=== PATIENT | male | born 1965 | race African-American/Black ===

== ENCOUNTER → 2016-07-21 | Outpatient (CLI) | payer OTHER ==
--- NOTE | ~2016-07-21 | US5 ---
[facility] A Service of [facility] RADIOLOGY TEXT RESULTS PATIENT: NAIN CRONIN LOCATION: [place] : 67 UNIT #: [id number] AGE: [address]: KATT MANZANO SEX: M ORDER DR: [id number] [facility] [address] [place], [place] [address] [id number] O MR#: [id number] Acc #: [id number] NAME: NAIN CRONIN : 1965 SEX: M STUDY DATE/TIME: 07/21/2016 10:48 UNIT: [facility]US ROOM: STUDY DESCRIPTION: US Abdominal Complete Attending Physician: Ana Gentile Referring Physician: Ana Gentile Ordering Physician: Ana Gentile Primary Care Physician: Kerline Collazo M.D. MEDICAL IMAGING REPORT This report is preliminary unless electronic signature is present EXAM Ultrasound of the abdomen complete 07/21/2016 INDICATION Abdominal pain worse in the last year. Hypertension. Abdominal pain for several years but pain has been worsening over the past 12 months. TECHNIQUE Sonographic imaging of the abdomen was performed. COMPARISON Correlation is made with CTA 2010. FINDINGS Segmentally visualized aorta and IVC are unremarkable. Visualized pancreas unremarkable. The liver measures 14.8 cm long axis. No focal liver mass, ascites, or intrahepatic ductal dilatation. The gallbladder IS sonographically unremarkable. Extrahepatic common bile duct measures 4-5 mm. Liver measures 14.2 cm. Kidneys are nonobstructed. The left measures 10.4 cm long axis and the right 9.6 cm. Nonobstructing stone in the mid pole left kidney measures about 4 mm. There is a benign-appearing cyst in the mid pole right kidney measuring 12 mm. The spleen measures 8.1 cm long axis. IMPRESSION 1. No evidence of cholelithiasis or ductal dilatation. 2. Tiny nonobstructing left renal stone. 3. Benign-appearing cyst right kidney. 4. Examination, otherwise, appears negative. Dictated by... Delio Bass M.D. [facility] A Service of [facility] RADIOLOGY TEXT RESULTS PATIENT: NAIN CRONIN LOCATION: [facility] : 67 UNIT #: [id number] AGE: [address]: KATT MANZANO SEX: M ORDER DR: THIS IS AN ELECTRONICALLY VERIFIED REPORT Delio Bass M.D. at 07/21/2016 7:08 PM Dayana TD: 07/21/2016 15:48 JOB #: [id number] MEDICAL IMAGING REPORT Page 1 of 1 COPY
== END | disposition home or self-care (01) ==
LOC: CGUS 10:04
DX: R10.9 Unspecified abdominal pain (principal); N20.0 Calculus of kidney; N28.1 Cyst of kidney, acquired; I10 Essential (primary) hypertension
CPT/HCPCS: 76700

== ENCOUNTER 2016-10-25 12:59 | Emergency (ER) | payer OTHER ==
[~2016-10-25] VITALS: Ht 172.7 cm; Wt 91.2 kg
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
== END 2016-10-25 15:22 | disposition home or self-care (01) ==
LOC: CFTX 12:59 → CED 12:59 → CFTX 14:51
DX: S13.4XXA Sprain of ligaments of cervical spine, initial encounter (principal); S33.5XXA Sprain of ligaments of lumbar spine, initial encounter; I10 Essential (primary) hypertension; V49.40XA Driver injured in collision with unspecified motor vehicles in traffic accident, initial encounter
CPT/HCPCS: 71101; 72040; 72100; 73502; 99284